=== PATIENT | male | born 1995 | race Asian ===

== ENCOUNTER 2017-04-28 15:12 | Emergency (ER) | payer OTHER ==
[~2017-04-28] VITALS: Ht 182.9 cm; Wt 67.0 kg
[2017-04-28] MEDS ORDERED: NO HOME MEDICATION XX (15:22)
== END 2017-04-28 17:00 ==
LOC: EDMED 15:12
PROC: 0HQEXZZ Repair Left Lower Arm Skin, External Approach (ICD-10-PCS; principal; 2017-04-28)
DX: S61.512A Laceration without foreign body of left wrist, initial encounter (principal); Z23 Encounter for immunization; W26.0XXA Contact with knife, initial encounter; Y92.69 Other specified industrial and construction area as the place of occurrence of the external cause